=== PATIENT | female | born 1945 | race Caucasian/White ===

== ENCOUNTER 2018-07-31 13:54 | Inpatient (IN) | payer MEDICARE ==
[~2018-07-31] VITALS: Ht 177.8 cm; Wt 95.3 kg
--- NOTE | ~2018-07-31 | HC ---
[facility] [place] [address] CONSULTATION Name: CIRILO ALBERTO CHILO Room #: 456-P [facility] IN M.R.#: [id number] Admission: 07/31/18 Attend Phys: Johny Casper MD Discharge: Date of : 49 Report #: [id number] THIS REPORT FOR: //name// CC: YAMILKA physician/PCP Johny Casper DATE OF SERVICE: 08/03/2018 REASON FOR CONSULTATION: I was asked to evaluate concerning exacerbation of chronic obstructive pulmonary disease with basilar infiltrates. HISTORY OF PRESENT ILLNESS: A 73-year-old with underlying history of COPD, who is on 6-8 liters of oxygen baseline as well as CPAP at night. She has been sick for about a week prior to her admission. She has had increased cough with purulent sputum production without hemoptysis. No pleuritic chest pain. No fever or chills. Her progressive shortness of breath required Emergency Room visit on 07/31/2018. She is placed on antibiotic therapy and corticosteroids. Remains on oxygen supplementation and respiratory therapy treatments. She denies any nausea, vomiting. She has had no travel outside the [place]. Reports no other exposures to ill persons. She is a nonsmoker. IMMUNIZATIONS: Up-to-date. REVIEW OF SYSTEMS: Denies any headache, pharyngitis symptoms, postnasal drip, sinus congestion, ear pain. Denies any weight gain or weight loss. No fever, chills or sweats. Denies any rash or decubiti. Does report oral thrush. No vaginitis symptoms. No palpitations, presyncopal episodes. Has venous stasis disease and chronic edema in lower extremities. Has had a colectomy and has a functional ileostomy. No dysuria or frequency. A 10-point review of systems is otherwise negative than described. ALLERGIES: METRONIDAZOLE, MONTELUKAST, SULFA, NAPROSYN and STATINS. MEDICATIONS: As noted on her MAR including Omnicef, Solu-Medrol. PAST MEDICAL HISTORY: Hypertension, COPD, coronary artery disease, ulcerative colitis, colectomy, COPD, obstructive sleep apnea. FAMILY HISTORY: Hypertension, COPD. SOCIAL HISTORY: Past smoker, no significant alcohol intake. Lives with her spouse. PHYSICAL EXAMINATION: GENERAL: Well-developed, well-nourished, in mild respiratory distress. Obese. [address] [address] CONSULTATION Name: CIRILO ALBERTO [facility] Room #: 456-[facility] IN M.R.#: [id number] Admission: 07/31/18 Attend Phys: Johny Casper MD Discharge: Date of : 49 Report #: [id number] VITAL SIGNS: Afebrile and hemodynamically stable. She is on 6 liters of oxygen per nasal cannula. HEENT: Eyes: Nonicteric with no conjunctivitis. Mouth: With thrush. No other lesions. NECK: Supple. No JVD or thyromegaly. No peripheral adenopathy palpable. SKIN: Without rash other than chronic venous stasis changes to both pretibial skin in the lower legs. LUNGS: Scattered wheezes bilaterally, both anterior and posterior. Fine crackles in the bases bilaterally. No consolidation. HEART: Regular without murmur. ABDOMEN: Soft, mild tenderness over her ileostomy. Ostomy otherwise was unremarkable. No other mass or hepatosplenomegaly. EXTREMITIES: Trace peripheral edema with venous stasis dermatitis changes to both pretibial skin in the lower legs. NEUROLOGIC: Nonfocal with cranial nerves intact. Strength in the lower extremities and upper extremities were equal. Sensation intact. Mood was normal. LABORATORY STUDIES: Creatinine is 1.2. WBC 9, hemoglobin 11.2, platelet count 298,000. MRSA screen was negative. Urinalysis was unremarkable. Sputum cultures pending. Chest x-ray with basilar interstitial changes. IMPRESSION: 1. Acute on chronic respiratory compromise with underlying chronic obstructive pulmonary disease. Exacerbation of her chronic obstructive pulmonary disease. Concerned about bacterial superinfection. Viral etiology is also possible. 2. Obstructive sleep apnea. 3. Previous pulmonary emboli. 4. Previous colectomy due to ulcerative colitis. RECOMMENDATION: We will continue broad antibiotic coverage for gram-positive and gram-negative organisms including atypical agents. Also, screen for viral etiology. Continue with corticosteroids, oxygen supplementation and respiratory treatments. Also, treat thrush with Mycelex. Await sputum culture and narrow antibiotics accordingly. It is noted that MRSA screen was negative. We will still await sputum culture. Follow up chest x-ray. <ELECTRONICALLY SIGNED> By: Sam Adams MD 08/04/18 1241 [id number] Sam Adams MD /nt
--- NOTE | ~2018-07-31 | EKG ---
[address] [place] [address] ELECTROCARDIOGRAM REPORT Name: CIRILO ALBERTO CHILO Room #: 456-P [facility] IN M.R.#: [id number] Admission: 07/31/18 Attend Phys: Johny Casper MD Discharge: Date of : 49 Report #: [id number] THIS REPORT FOR: //name// [facility] ED Test Date: 2018-07-31 Test Time: 15:28:02 Pat Name: CIRILO ALBERTO Department: Room: 456 Gender: F [employer] Tender: JON : 1945 Requested By: Maty Cooper Order Number: [id number] MD: Mohsen Back Measurements Intervals [place] Rate: 89 P: 65 [place]: 169 QRS: 91 QRSD: 97 T: 22 QT: 332 QTc: 404 Interpretive Statements Sinus rhythm Right axis deviation No previous ECG available for comparison Electronically Signed On 08-01-2018 10:13:36 CDT by Mohsen Back [email or web address] <ELECTRONICALLY SIGNED> By: Mohsen Back MD 08/01/18 1013 1528 1528 Mohsen Back MD /PANCHITO
[~2018-07-31 13:54] MED LIST: ACCUNEB0.63 MG/3; ACCUNEB0.63 MG/3 INH; ACETAMINOPHEN325 M1 PO; ALBUTEROL2.5 MG/31 INH; ASACOL HD800 MG PO; ASPIRIN81 M2 PO; BROVANA15 MCG/2 M INH; CALCIUM 600 +1 EAC1 PO; CEFDINIR300 MG PO; FLONASE16 GM NASAL; FLOVENT DISKUS50 MCG IH; FOSAMAX 70 MG T70 M1 PO; HUMIRA40 MG/0.8 SUBQ; LEVOTHYROXIN0.125 M1 PO; LUNESTA3 MG PO; MESALAMINE4 GM/60 M2 RECTAL; NASAL SPRAY ORI30 ML NS; NORCO 5-325 TA1 EACH PO; NOVOLOG100 UNIT/1 SUBQ; OCEAN45 ML NASAL; PRAVACHOL 20 MG20 M1 PO; PREDNISONE 10 M10 M1 PO; PREDNISONE 20 M20 M1 PO; PRILOSEC 20 MG20 MG PO; PROAIR HFA8.5 GM INH; PULMICORT0.25 MG/2 PO; PULMICORT0.5 MG/2 M INH; SINGULAIR 10 MG10 M1 PO; VANCOMYCIN250 MG/2.5 PO; VITAMIN D1000 UNI1 PO
[2018-07-31 14:02] VITALS: BP 137/77
[2018-07-31 16:12] LABS: BASOPHILS 0.3 % (0.0-2.0); HEMATOCRIT 37.3 % (37.0-47.0); HEMOGLOBIN 12.4 gm/dL (12.0-15.0); LYMPHOCYTES 16.6 % (24.0-44.0); MCH 29.5 pg (26.0-34.0); MCHC 33.2 g/dL (28.0-37.0); MCV 89.1 fL (80.0-100.0); MONOCYTES 8.1 % (1.0-8.0); PLATELET COUNT 287 thou/uL (150-400); RBC 4.19 mil/uL (4.20-5.00); RDW 14.1 % (10.5-14.5); WBC 8.3 thou/uL (4.0-11.0)
[2018-07-31 16:21] LABS: ANION GAP < 0 mmol/L (7-16); BUN 12 mg/dL (7-18); CALCIUM 9.6 mg/dL (8.5-10.1); CHLORIDE 100 mmol/L (98-107); CO2 39 mmol/L (21-32); CREATININE 1.1 mg/dL (0.6-1.0); GLUCOSE 122 mg/dL (74-106); POTASSIUM 4.8 mmol/L (3.5-5.1); SODIUM 138 mmol/L (136-145)
[2018-07-31 16:29] LABS: ALBUMIN 3.8 g/dL (3.4-5.0); SGOT 37 U/L (15-37); SGPT 39 U/L (30-65); TOTAL BILIRUBIN 0.4 mg/dL (<0.1-1.0); TOTAL PROTEIN 9.3 g/dL (6.4-8.2); TROPONIN-I 0.06 ng/mL (<0.06)
[2018-07-31 18:07] VITALS: BP 137/77
[2018-07-31 18:19] VITALS: BP 138/86
[2018-07-31 18:39] VITALS: BP 146/75
[2018-07-31 19:43] VITALS: BP 139/61
[2018-08-01 05:19] VITALS: BP 152/96
[2018-08-01 07:55] VITALS: BP 163/78
[2018-08-01 15:16] VITALS: BP 146/76
[2018-08-02 03:51] VITALS: BP 147/78
[2018-08-02 08:00] VITALS: BP 146/72
[2018-08-02] MEDS ORDERED: MUCINEX1200 MG PO (10:48)
[2018-08-02] MEDS ORDERED: XARELTO20 MG PO (12:04)
[2018-08-02 15:45] VITALS: BP 153/80
[2018-08-02 19:21] VITALS: BP 167/86
[2018-08-03 03:28] VITALS: BP 159/94
[2018-08-03 04:18] LABS: CALCIUM 9.3 mg/dL (8.5-10.1); CREATININE 1.2 mg/dL (0.6-1.0); POTASSIUM 4.8 mmol/L (3.5-5.1)
[2018-08-03 04:36] LABS: ABSOLUTE NEUTROPHILS 8.5 thou/uL (1.4-8.2); HEMATOCRIT 34.8 % (37.0-47.0); HEMOGLOBIN 11.2 gm/dL (12.0-15.0); LYMPHOCYTES 4.9 % (24.0-44.0); MCH 28.4 pg (26.0-34.0); MCHC 32.1 g/dL (28.0-37.0); MCV 88.5 fL (80.0-100.0); MONOCYTES 3.1 % (1.0-8.0); PLATELET COUNT 298 thou/uL (150-400); RBC 3.93 mil/uL (4.20-5.00); RDW 13.8 % (10.5-14.5); WBC 9.3 thou/uL (4.0-11.0)
[2018-08-03 07:40] VITALS: BP 179/99
[2018-08-03 15:01] LABS: URINE BILIRUBIN NEGATIVE (Negative); URINE BLOOD 1+ (Negative); URINE CLARITY CLEAR; URINE COLOR YELLOW; URINE GLUCOSE-RANDOM* NEGATIVE (Negative); URINE KETONES NEGATIVE (Negative); URINE LEUKOCYTES-REFLEX NEGATIVE (Negative); URINE NITRITE-REFLEX NEGATIVE (Negative); URINE PROTEIN (DIPSTICK) 1+ (Negative); URINE UROBILINOGEN 0.2 E.U./dl (0.2-1.0)
[2018-08-03 15:10] LABS: BACTERIA-REFLEX 1-9 Few /HPF (None Seen); CASTS None Seen /LPF (None Seen); CRYSTALS None Seen /LPF (None Seen); SQUAMOUS 0-3 Few /LPF (0-3); URINE RBC 0-2 Rare /HPF (0-2); URINE WBC-REFLEX 0-5 Rare /HPF (0-5)
[2018-08-03 17:20] VITALS: BP 188/91
[2018-08-03 19:40] VITALS: BP 173/93
[2018-08-04 05:04] VITALS: BP 157/89
[2018-08-04 08:25] VITALS: BP 165/82
[2018-08-04 11:39] VITALS: BP 153/77
[2018-08-04 15:26] VITALS: BP 176/79
[2018-08-04 17:11] LABS: GLOBULIN TOTAL 4.1 g/dL (2.2-3.9); M-SPIKE Not Observed g/dL (Not Observed)
[2018-08-04 19:34] VITALS: BP 167/61
[2018-08-05 04:25] LABS: ANION GAP < 0 mmol/L (7-16); BUN 34 mg/dL (7-18); CALCIUM 8.7 mg/dL (8.5-10.1); CHLORIDE 102 mmol/L (98-107); CO2 40 mmol/L (21-32); CREATININE 1.2 mg/dL (0.6-1.0); GLUCOSE 195 mg/dL (74-106); POTASSIUM 5.2 mmol/L (3.5-5.1); SODIUM 138 mmol/L (136-145)
[2018-08-05 04:28] LABS: ABSOLUTE NEUTROPHILS 6.5 thou/uL (1.4-8.2); HEMATOCRIT 35.2 % (37.0-47.0); HEMOGLOBIN 11.3 gm/dL (12.0-15.0); LYMPHOCYTES 5.1 % (24.0-44.0); MCH 28.9 pg (26.0-34.0); MCHC 32.2 g/dL (28.0-37.0); MCV 89.8 fL (80.0-100.0); MONOCYTES 4.4 % (1.0-8.0); PLATELET COUNT 271 thou/uL (150-400); POLYS 90.5 % (36.0-66.0); RBC 3.92 mil/uL (4.20-5.00); RDW 14.2 % (10.5-14.5); WBC 7.1 thou/uL (4.0-11.0)
[2018-08-05 04:33] VITALS: BP 178/62
[2018-08-05 08:19] VITALS: BP 139/65
[2018-08-05 20:08] LABS: URINE PROTEIN (MG/DL) 60.7 mg/dL
[2018-08-05 20:30] VITALS: BP 157/76
[2018-08-05 23:10] LABS: ADENOVIRUS Negative (Negative); INFLUENZA A Negative (Negative); INFLUENZA B Negative (Negative); METAPNEUMOVIRUS Negative (Negative); PARAINFLUENZA 1 Negative (Negative); PARAINFLUENZA 2 Negative (Negative); PARAINFLUENZA 3 Negative (Negative); RHINOVIRUS Negative (Negative); RSV A Negative (Negative); RSV B Negative (Negative)
[2018-08-06 08:00] VITALS: BP 150/74
[2018-08-06 20:32] VITALS: BP 154/78
[2018-08-07 07:47] VITALS: BP 166/86
[2018-08-07 20:00] VITALS: BP 158/67
[2018-08-08 08:23] VITALS: BP 136/75
[2018-08-08 20:07] VITALS: BP 139/66
[2018-08-09 07:13] LABS: ABSOLUTE NEUTROPHILS 9.4 thou/uL (1.4-8.2); BASOPHILS 0.4 % (0.0-2.0); EOSINOPHILS 0.2 % (0.0-3.0); HEMATOCRIT 38.7 % (37.0-47.0); HEMOGLOBIN 12.4 gm/dL (12.0-15.0); LYMPHOCYTES 9.4 % (24.0-44.0); MCH 28.4 pg (26.0-34.0); MCHC 32.2 g/dL (28.0-37.0); MCV 88.2 fL (80.0-100.0); MONOCYTES 6.1 % (1.0-8.0); PLATELET COUNT 273 thou/uL (150-400); POLYS 83.9 % (36.0-66.0); RBC 4.39 mil/uL (4.20-5.00); RDW 14.7 % (10.5-14.5); WBC 11.2 thou/uL (4.0-11.0)
[2018-08-09 07:20] VITALS: BP 145/75
[2018-08-09 07:26] LABS: BUN 27 mg/dL (7-18); CALCIUM 8.9 mg/dL (8.5-10.1); CHLORIDE 98 mmol/L (98-107); GLUCOSE 129 mg/dL (74-106); POTASSIUM 4.8 mmol/L (3.5-5.1); SODIUM 138 mmol/L (136-145)
[2018-08-09 07:43] LABS: CO2 > 45 mmol/L (21-32)
[2018-08-09 21:30] VITALS: BP 142/74
[2018-08-10 08:52] VITALS: BP 124/63
[2018-08-10] MEDS ORDERED: PREDNISONE 20 M20 MG PO (10:26)
[2018-08-10] MEDS ORDERED: AZITHROMYCIN 2250 MG PO (10:26)
[2018-08-10] MEDS ORDERED: CEFDINIR300 MG PO (10:28)
[2018-08-10 11:08] VITALS: BP 142/74
== END 2018-08-10 13:23 | disposition home or self-care (01) | DRG 871 ==
LOC: ER 13:54 → 4W 17:25 → EROBS 17:25 → 4W 18:20 → SICU 08-05 16:00 → ENTRNSPT 08-10 12:52 → EDTRNSPTSTS 08-10 12:54 → SICU 08-10 13:23
PROVIDERS: Hospitalist; Internal Medicine Infectious Disease; Internal Medicine Pulmonary Disease; Pediatrics; Specialist; Student in an Organized Health Care Education/Training Program
DX: A41.9 Sepsis, unspecified organism (principal); J18.9 Pneumonia, unspecified organism; J96.21 Acute and chronic respiratory failure with hypoxia; J96.22 Acute and chronic respiratory failure with hypercapnia; N17.9 Acute kidney failure, unspecified; J44.1 Chronic obstructive pulmonary disease with (acute) exacerbation; D68.59 Other primary thrombophilia; K51.90 Ulcerative colitis, unspecified, without complications; J44.0 Chronic obstructive pulmonary disease with (acute) lower respiratory infection; E03.9 Hypothyroidism, unspecified; E78.00 Pure hypercholesterolemia, unspecified; K21.9 Gastro-esophageal reflux disease without esophagitis; I10 Essential (primary) hypertension; I25.10 Atherosclerotic heart disease of native coronary artery without angina pectoris; G47.33 Obstructive sleep apnea (adult) (pediatric); S70.01XA Contusion of right hip, initial encounter; S40.021A Contusion of right upper arm, initial encounter; E78.5 Hyperlipidemia, unspecified; F41.9 Anxiety disorder, unspecified; G47.00 Insomnia, unspecified; B37.9 Candidiasis, unspecified; Z86.711 Personal history of pulmonary embolism; Z88.2 Allergy status to sulfonamides; Z88.8 Allergy status to other drugs, medicaments and biological substances; Z90.49 Acquired absence of other specified parts of digestive tract; Z82.49 Family history of ischemic heart disease and other diseases of the circulatory system; Z83.6 Family history of other diseases of the respiratory system; Z87.891 Personal history of nicotine dependence; Z99.81 Dependence on supplemental oxygen; Z79.01 Long term (current) use of anticoagulants; Z91.19 Patient's noncompliance with other medical treatment and regimen; Z93.3 Colostomy status; W01.0XXA Fall on same level from slipping, tripping and stumbling without subsequent striking against object, initial encounter; Y93.89 Activity, other specified; Y92.89 Other specified places as the place of occurrence of the external cause; Y99.8 Other external cause status
CPT/HCPCS: 10045; 15002